=== PATIENT | male | born 1965 | race Two or more races ===

== ENCOUNTER 2024-01-14 18:13 | Inpatient (IN) | payer OTHER ==
[~2024-01-14] VITALS: Ht 182.9 cm; Wt 101.6 kg
--- NOTE | 2024-01-14 18:45 | NUR ---
PACIENTE ALERTA YORIENTADO X 3. REFIERE DOLOR DE ESPALDA BAJA EN AREA DE RINON[address] HACE 3 VALDERRAMA, INDICA INCONTINENCIA URINARIA Y DEXTRO ESTA EN 452MG/DL
[2024-01-14] MEDS ORDERED: INSULIN REGULAR, HUMAN 1,000 UNIT/10 ML UNITS SUBCUTANEO ONE (19:45)
[2024-01-14] MEDS ORDERED: MORPHINE SULFATE 4 MG/ML VIAL IV ONE (19:45)
[2024-01-14 20:19] LABS: HEMATOCRIT 43.6 % (39.0-48.0); HEMOGLOBIN 14.7 g/dL (13-16.00); MEAN CELL VOLUME 86.3 fL (80.0-100.00); MEAN CORPUSCULAR HEMOGLOBIN 29.1 pg (27.00-32.0); MEAN CORPUSCULAR HGB CONC 33.7 g/dl (32.0-36.0); PLATELET COUNT 224 K/uL (150-450); RED BLOOD COUNT 5.05 M/uL (4.00-6.00); RED CELL DISTRIBUTION WIDTH 13.6 % (11.5-14.5)
[2024-01-14 20:40] LABS: INR 1.03; PARTIAL THROMBOPLASTIN TIME 26.2 SECONDS (22.0-34.0); PROTHROMBIN TIME 10.8 SECONDS (9.0-11.5)
[2024-01-14 20:47] LABS: BILIRUBIN TOTAL 0.58 mg/dL (0.3-1.2); CALCIUM 9.2 mg/dL (8.5-10.1); CREATININE SERUM 2.32 mg/dL (0.70-1.30); GFR 29.27; GLOBULINA 3.9 G/DL (2.4-3.5); POTASSIUM 4.58 mEq/L (3.5-5.1); TOTAL PROTEIN 7.9 gm/dL (6.4-8.2)
[2024-01-14 20:51] LABS: PH,URINE 5.5 (5.0-8.0); URINE APPEARANCE Cloudy; URINE BILIRRUBIN Negative (NEGATIVE); URINE BLOOD Negative; URINE COLOR Yellow; URINE KETONE Negative (NEGATIVE); URINE LEUKOCYTE Trace; URINE NITRATE Negative; URINE PROTEIN Negative (NEGATIVE); URINE UROBILINOGEN 0.2 E.U./dl
[2024-01-14 20:54] LABS: URINE BACTERIA 3732.9 uL (0.0-1933); URINE EPITHELIAL CELLS 13.1 uL (0.0-38.8)
--- NOTE | 2024-01-14 20:56 | NUR ---
PTE ALERTA Y ORIENTADO X3. SE REALIZAN MUESTRAS DE LAB [facility] ORDEN MEDICA Y BAJO MEDIDAS ASEPTICAS. SE ADMINSITRA MEDICAMENTO, NO SE OBSERVA REACCION ADVERSA.
[2024-01-14 21:06] LABS: URINE GLUCOSE >=1000 MG/DL (NEGATIVE); URINE RBC 1.9 uL (0.0-20.8)
[2024-01-14] MEDS ORDERED: CEFTRIAXONE SODIUM 1,000 MG VIAL IV ONE (21:15)
[2024-01-14] MEDS ORDERED: CEFTRIAXONE SODIUM 1,000 MG VIAL ONE (21:18)
[2024-01-14] MEDS ORDERED: 0.9 % SODIUM CHLORIDE 1,000 ML IV ONE (21:30)
[2024-01-14] MEDS ORDERED: CEFTRIAXONE SODIUM 2,000 MG in 0.9 % SODIUM CHLORIDE 100 ML IV SCH (23:06)
[2024-01-14] MEDS ORDERED: CLONAZEPAM 1 MG TABLET PO SCH (23:07)
[2024-01-14] MEDS ORDERED: 0.9 % SODIUM CHLORIDE 1,000 ML IV SCH (23:15)
[2024-01-14] MEDS ORDERED: DEXTROSE 50 % IN WATER 0.5 G/ML DISP.SYRIN IV PRN (23:15)
[2024-01-14] MEDS ORDERED: INSULIN LISPRO 1,000 UNIT/10 ML UNITS SUBCUTANEO PRN (23:15)
[2024-01-14] MEDS ORDERED: ACETAMINOPHEN 500 MG GEL..CAP PO PRN (23:15)
[2024-01-15] MEDS ORDERED: INSULIN LISPRO 1,000 UNIT/10 ML UNITS SUBCUTANEO ONE (02:39)
[2024-01-15] MEDS ORDERED: Duloxetine HCl 60 MG CAPSULE.DR PO SCH (09:00)
[2024-01-15] MEDS ORDERED: LISINOPRIL 10 MG TABLET PO SCH (09:00)
[2024-01-15] MEDS ORDERED: MEPERIDINE HCL/PF 25 MG/ML VIAL IM PRN (17:00)
[2024-01-15] MEDS ORDERED: SIMVASTATIN 40 MG TABLET PO SCH (17:00)
[2024-01-15] MEDS ORDERED: INSULIN NPH HUM/REG INSULIN HM 1,000 UNIT/10 ML UNITS SUBCUTANEO STA (20:20)
[2024-01-15] MEDS ORDERED: INSULIN GLARGINE,HUM.REC.ANLOG 1,000 UNITS/10 ML UNITS SUBCUTANEO SCH (21:00)
[2024-01-16] MEDS ORDERED: INSULIN LISPRO 1,000 UNIT/10 ML UNITS SUBCUTANEO SCH (08:00)
[2024-01-16] MEDS ORDERED: INSULIN NPH HUM/REG INSULIN HM 1,000 UNIT/10 ML UNITS SUBCUTANEO SCH ×2 (08:00→17:00)
[2024-01-16 09:01] LABS: HEMATOCRIT 39.3 % (39.0-48.0); HEMOGLOBIN 13.3 g/dL (13-16.00); MEAN CELL VOLUME 85.2 fL (80.0-100.00); MEAN CORPUSCULAR HEMOGLOBIN 28.9 pg (27.00-32.0); MEAN CORPUSCULAR HGB CONC 33.9 g/dl (32.0-36.0); PLATELET COUNT 192 K/uL (150-450); RED BLOOD COUNT 4.61 M/uL (4.00-6.00)
[2024-01-16 09:44] LABS: ALBUMIN 3.2 gm/dL (3.4-5.0); BILIRUBIN TOTAL 0.33 mg/dL (0.3-1.2); CALCIUM 9.1 mg/dL (8.5-10.1); CREATININE SERUM 1.13 mg/dL (0.70-1.30); GFR 67.13; GLOBULINA 2.7 G/DL (2.4-3.5); MAGNESIUM 1.9 mg/dL (1.8-2.4); PHOSPHOROUS 3.8 mg/dL (2.5-4.9); POTASSIUM 4.4 mEq/L (3.5-5.1); TOTAL PROTEIN 5.9 gm/dL (6.4-8.2)
[2024-01-16 09:45] LABS: C-REACTIVE PROTEIN 2.39 MG/DL (0.00-0.29)
[2024-01-16 10:10] LABS: URINE APPEARANCE Clear; URINE BILIRRUBIN Negative (NEGATIVE); URINE BLOOD Negative; URINE COLOR Yellow; URINE KETONE Negative (NEGATIVE); URINE LEUKOCYTE Trace; URINE NITRATE Negative; URINE PROTEIN Negative (NEGATIVE); URINE UROBILINOGEN 0.2 E.U./dl
[2024-01-16 10:14] LABS: URINE BACTERIA 23.9 uL (0.0-1933); URINE EPITHELIAL CELLS 13.7 uL (0.0-38.8); URINE WBC 116.5 uL (0.0-23.2)
[2024-01-16 10:19] LABS: URINE GLUCOSE 500 MG/DL (NEGATIVE)
[2024-01-16 10:20] LABS: URINE CAST 0.15 uL (0.0-1.40); URINE RBC 1.9 uL (0.0-20.8)
[2024-01-17] MEDS ORDERED: INSULIN NPH HUM/REG INSULIN HM 1,000 UNIT/10 ML UNITS SUBCUTANEO SCH (08:00)
[2024-01-17] MEDS ORDERED: SIMVASTATIN40 MG PO (09:06)
[2024-01-17] MEDS ORDERED: LISINOPRIL10 MG PO (09:06)
[2024-01-17] MEDS ORDERED: CLONAZEPAM1 MG PO ×2 (09:06→09:09)
[2024-01-17] MEDS ORDERED: DULOXETINE HCL60 MG PO (09:07)
[2024-01-17] MEDS ORDERED: INSULIN LI100 UNIT/1 SUBCUTANEO (09:07)
[2024-01-17] MEDS ORDERED: HUMULIN 70100 UNIT/2 SUBCUTANEO ×2 (09:07)
[2024-01-17] MEDS ORDERED: FENOFIBRATE145 MG PO (09:08)
[2024-01-17] MEDS ORDERED: DULOXETINE HCL20 MG PO (09:09)
[2024-01-17] MEDS ORDERED: JANUVIA25 MG PO (09:09)
[2024-01-17] MEDS ORDERED: QUETIAPINE FUM100 MG PO (09:10)
[2024-01-17] MEDS ORDERED: METOPROLOL TAR100 MG PO (09:10)
[2024-01-17] MEDS ORDERED: TRAZODONE HCL150 MG PO (09:10)
[2024-01-17] MEDS ORDERED: GABAPENTIN100 M2 PO (09:11)
== END 2024-01-17 13:07 | disposition home or self-care (01) | DRG 690 ==
LOC: ER 18:14 → MEDJ 23:09 → MEDI 01-16 13:02
PROVIDERS: General Practice; Internal Medicine Infectious Disease; ADMIT Internal Medicine; ATTEND Internal Medicine
PROC: BW21ZZZ Computerized Tomography (CT Scan) of Abdomen and Pelvis (ICD-10-PCS; principal; 2024-01-14)
PROC: BF37ZZZ Magnetic Resonance Imaging (MRI) of Pancreas (ICD-10-PCS; 2024-01-16)
DX: N39.0 Urinary tract infection, site not specified (principal); N17.8 Other acute kidney failure; E11.22 Type 2 diabetes mellitus with diabetic chronic kidney disease; I12.9 Hypertensive chronic kidney disease with stage 1 through stage 4 chronic kidney disease, or unspecified chronic kidney disease; N18.9 Chronic kidney disease, unspecified; Z79.4 Long term (current) use of insulin
CPT/HCPCS: 74181